=== PATIENT | female | born 1955 | race Caucasian/White ===

== ENCOUNTER 2021-01-13 15:46 | Emergency (ER) | payer OTHER, SELFPAY ==
--- NOTE | ~2021-01-13 | XR_ITS ---
XR elbow RT min 3V 01/13/2021 19:23 INDICATION: Right elbow pain after fall PROCEDURE: 4 views right elbow COMPARISON: No prior studies for comparison. FINDINGS: Fracture, dislocation or subluxation is not identified. The soft tissues appear within norm al limits. No foreign bodies are identified. IMPRESSION: 1: NO ACUTE BONE OR JOINT ABNORMALITY IDENTIFIED. Reviewed, dictated and finalized at location A. ORIC SITES SUPERVISOR
[2021-01-13 16:07] VITALS: BP 150/92; PULSE 129; RESP 18; TEMP 36.6; O2SAT 97
[2021-01-13 18:55] VITALS: BP 146/99; PULSE 100; RESP 18; TEMP 36.7; O2SAT 99
--- NOTE | 2021-01-13 19:45 | ED.GENADULT ---
HPI - General Adult General Chief complaint: Fall <Roula Arguelles PA-C - Last Filed: 01/13/21 19:55> Stated complaint: fall <Roula Arguelles PA-C - Last Filed: 01/13/21 19:55> Time Seen by Provider: 01/13/21 18:47 <Roula Arguelles PA-C - Last Filed: 01/13/21 19:55> Source: patient <KALIA Ledesma Last Filed: 01/13/21 19:55> Mode of arrival: ambulatory <Roula Arguelles PA-C - Last Filed: 01/13/21 19:55> Limitations: no limitations <Roula Arguelles PA-C - Last Filed: 01/13/21 19:55> History of Present Illness HPI narrative: Patient with history of emphysema hypertension presents with chief complaint of right elbow pain and abrasion that began on Wednesday after a fall. Patient states she is not sure why she lost her balance and fell. She is not sure if she had a syncopal event ,but she denies any headache, change in vision or hearing, additional episodes, bleeding from any orifices or any neurological deficits since the event. Patient denies any palpitations, chest pain or shortness of breath. Patient reports pain with full flexion of the right elbow. She also reports she has abrasions which she has been washing with antibacterial soap and applying bandages. She denies any other areas of pain. <Roula Arguelles PA-C - Last Filed: 01/13/21 19:55> Related Data Allergies/adverse reactions: Allergies Allergy/AdvReac Type Severity Reaction Status Date / Time tetracycline Allergy Unknown RASH Verified 11/01/18 11:34 <Roula Arguelles PA-C - Last Filed: 01/13/21 19:55> Review of Systems Review of Systems: Narrative: CONSTITUTIONAL: Denies fever, chills, or sweats. EYES: Denies visual changes, redness, or discharge. ENT: Denies rhinorrhea, congestion, sore throat, or otalgia. CARDIOVASCULAR: Denies chest pain, palpitations, or edema. RESPIRATORY: Denies cough or dyspnea. GASTROINTESTINAL: Denies abdominal pain, nausea, vomiting, or diarrhea. GENITOURINARY: Denies dysuria or hematuria. SKIN: Reports abrasion denies rash or itching. MUSCULOSKELETAL: Reports right elbow pain denies back pain, joint pain, or myalgia. NEUROLOGIC: Denies headache, numbness, dizziness, or weakness. PSYCHIATRIC: Denies anxiety or depression. <Roula Arguelles PA-C - Last Filed: 01/13/21 19:55> Exam Narrative: Exam Narrative: GENERAL: Well-appearing, well-nourished, and in no acute distress. HEAD: Normocephalic, atraumatic. EYES: PERRLA and EOMI. ENT: Nares clear, no rhinorrhea or epistaxis. Mucous membranes moist. Bilateral TMs pearly kimball nonbulging. No hemotympanum NECK: Supple. No adenopathy or masses. CHEST: Decreased airflow throughout. no respiratory distress. On 2 liters of oxygen via nasal cannula at baseline. HEART: Regular rate and rhythm. No murmur heard. Normal peripheral pulses. EXTREMITIES: Pain with full flexion. Abrasions noted to right elbow. No active bleeding or leaking. No signs of cellulitis or infection. SKIN: See elbow abrasions and extremities.warm, dry, no rash. NEURO: No focal deficits. Alert and oriented x3. PSYCH: Normal mood and affect. <Roula Arguelles PA-C - Last Filed: 01/13/21 19:55> Course Vital Signs Vital signs: Vital Signs Temperature 36.6 C 01/13/21 16:07 Pulse Rate 129 H 01/13/21 16:07 Respiratory Rate 18 01/13/21 16:07 Blood Pressure 150/92 H 01/13/21 16:07 Pulse Oximetry 97 01/13/21 16:07 Temperature 36.7 C 01/13/21 18:55 Pulse Rate 73 01/13/21 20:40 Respiratory Rate 16 01/13/21 20:40 Blood Pressure 144/87 H 01/13/21 20:40 Pulse Oximetry 96 01/13/21 20:40 <KALIA Ledesma Last Filed: 01/13/21 19:55> Vital Signs Temperature 36.6 C 01/13/21 16:07 Pulse Rate 129 H 01/13/21 16:07 Respiratory Rate 18 01/13/21 16:07 Blood Pressure 150/92 H 01/13/21 16:07 Pulse Oximetry 97 01/13/21 16:07 Temperature 36.7 C 01/13/21 18:55 Pulse Rate 73 01/13/21 20:40 Respiratory Rate 16
[2021-01-13 20:40] VITALS: BP 144/87; PULSE 73; RESP 16; O2SAT 96
== END 2021-01-13 20:45 | disposition home or self-care (01) ==
PROVIDERS: Emergency Provider Emergency Medicine; PCP Physician Assistant
DX: S53.401A Unspecified sprain of right elbow, initial encounter (principal); W18.39XA Other fall on same level, initial encounter
CPT/HCPCS: 73080; 99283

== ENCOUNTER 2021-10-08 12:56 | Outpatient (CLI) | payer OTHER, SELFPAY ==
--- NOTE | ~2021-10-08 | MM_ITS ---
EXAMINATION: MM screening vandana BI w amanda HISTORY: Screening mammogram TECHNIQUE: Craniocaudal and mediolateral oblique 3-D tomosynthesis images were obtained and synthetic 2-D images were generated. CAD analysis was submitted and interpreted. COMPARISON: December 22, 2018 limited right breast ultrasound 06/23/2018 diagnostic right mammogram and complete right breast ultrasound 06/13/2018, 07/15/2016 bilateral screening mammogram examinations BREAST PARENCHYMAL COMPOSITION: The breasts are heterogeneously dense, which may obscure small masses . FINDINGS: There is no evidence of suspicious mass, calcification, or architectural distortion to sugg est malignancy in either breast. There has been no suspicious interval change. IMPRESSION: 1. No mammographic evidence of malignancy. 2. Recommend routine screening mammography in one year. BI-RADS Category 1: Negative Reviewed, dictated and finalized at location A. H OPERATOR
--- NOTE | ~2021-10-08 | DEXA_ITS ---
Bone Density Report Name: Héctor Persaud Age: 66 Sex: Female Ethnicity: White Date of : 1955 Indication: postmenopausal; asthma or emphysema; hysterectomy; Referring Provider: REYNA, GIULIA Study: Bone densitometry was performed. Exam Date: October 08, 2021 Accession number: [id number] Bone Density: Region BMD T-score Z-score Classification AP Spine (L1, L2, L3) 0.655 -3.3 -1.4 Osteoporosis Femoral Neck (Left) 0.570 -2.5 -0.8 Osteoporosis Total Hip (Left) 0.598 -2.8 -1.4 Osteoporosis Total Hip Bilateral Avg 0.623 -2.6 -1.2 Osteoporosis Femoral Neck (Right) 0.612 -2.1 -0.4 Osteopenia Total Hip (Right) 0.647 -2.4 -1.0 Osteopenia World Health Organization criteria for BMD impression classify patients as: Normal (T-score at or above -1.0), Osteopenia (T-score between -1.0 and -2.5), or Osteoporosis (T-score at or below -2.5). 10-year Fracture Risk: FRAX not reported because: Some T-score for Spine Total or Hip Total or Femoral Neck at or below -2.5 Clinical Information Provided by Patient: Has used the following medications: Vitamin D, Calcium Has the following medical conditions: Asthma or Emphysema, Hysterectomy Patient maximum height was 62 Menopause Age: 46 No regular weight bearing exercise Drinks caffeinated beverages Onset of menses at age 12 Number of children 0 Impression: The patient has osteoporosis, based on the Total Spine T-score. Discussion: INCREASED RISK OF FRACTURE. BONE DENSITY IS UNDESIRABLY LOW AT ONE OR MORE SKELETAL SITES, CONSISTENT WITH POSTMENOPAUSAL OSTEOPOROSIS. This patient's lowest T-score meets the World Health Organization's (WHO) criteria for osteoporosis at one or more sites (T-score -2.5 or below). In untreated patients, the risk of osteoporotic fracture increases approximately two-fold for each 1.0 SD decrease in T-score. Low bone density is not the only risk factor for fracture; also consider factors such as patient's age, frailty or poor health, risk of falling, risk of injury, previous osteoporotic fracture, family history of osteoporosis, cigarette smoking, low body weight, etc. Not everyone with low bone mineral density has osteoporosis; osteomalacia and other metabolic bone disorders should also be considered. Patients who have osteoporosis should be evaluated for specific diseases and conditions (secondary causes) that may cause or contribute to bone loss. The [place] Association of Clinical Endocrinologists (AACE) and National Osteoporosis Foundation (NOF) recommend pharmacologic intervention for all postmenopausal women whose T-score is in this range. The patient should follow a healthful lifestyle (good nutrition with adequate calcium and vitamin D, and appropriate weight-bearing exercise). Follow-Up: Consider a repeat BMD and Vertebral Fracture Assessmen
== END 2021-10-08 12:57 | disposition home or self-care (01) ==
LOC: ANHIMG 12:59
PROVIDERS: PCP Physician Assistant; Visit Provider Physician Assistant
DX: Z12.31 Encounter for screening mammogram for malignant neoplasm of breast (principal); Z78.0 Asymptomatic menopausal state; M81.0 Age-related osteoporosis without current pathological fracture; M85.851 Other specified disorders of bone density and structure, right thigh
CPT/HCPCS: 77063; 77067; 77080

== ENCOUNTER 2021-10-21 11:43 | Emergency (ER) | payer OTHER, SELFPAY ==
--- NOTE | ~2021-10-21 | XR_ITS ---
EXAMINATION: XR hand RT min 3V DATE: 10/21/2021 13:17 INDICATION: Right hand injury with laceration to the fifth digit TECHNIQUE: Posteroanterior, oblique and lateral views of the right hand were obtained. COMPARISON: None. FINDINGS: One cortical width dorsal displacement of an oblique fracture at the proximal metadiaphyseal region o f the fifth metacarpal which does not appear to extend to involve the articular surface. Alignment is otherwise normal. No other fractures identified. Polyarticular osteoarthritis, moderate severity at the first carpal metacarpal and at multiple distal interphalangeal joints with additional mild osteoa rthritis at the wrist, distal radioulnar, triscaphe, multiple metacarpophalangeal and remaining inter phalangeal joints. Diffuse osteopenia. Soft tissue swelling with bandaging material at the fifth prox imal interphalangeal joint. No evident radiopaque foreign bodies. Small heterotopic ossicle along the dorsal/radial aspect of the base of the second proximal phalanx which could represent sequela of chr onic injury to the radial collateral ligament. IMPRESSION: 1. Minimally displaced extra articular fracture at the proximal metadiaphyseal region of the right fi fth metacarpal. 2. No evident radiopaque foreign body or osseous abnormality at the site of a reported laceration at the fifth proximal interphalangeal joint. 3. 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 Reviewed, dictated and finalized at location A. OR WIND ENERGY CONSULTANT IMPRESSION: 1. Minimally displaced extra articular fracture at the proximal metadiaphyseal region of the right fifth metacarpal. 2. No evident radiopaque foreign body or osseous abnormality at the site of a r eported laceration at the fifth proximal interphalangeal joint. 3. 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
[2021-10-21 11:45] VITALS: BP 147/96; PULSE 115; RESP 20; TEMP 36.2; O2SAT 99
--- NOTE | 2021-10-21 12:51 | ED.FALL ---
HPI - Fall General Chief Complaint: Fall Stated Complaint: R hand Injury Time Seen by Provider: 10/21/21 12:00 Source: patient Mode of arrival: ambulatory Limitations: no limitations History of Present Illness HPI Narrative: 66-year-old female Patient states that 3 days ago she fell in her bedroom and smacked her right hand on a table She has a lot of soreness and bruising but no obvious deformity She tells me that all of her friends are telling her that they do not think it is broken but she does not necessarily believe them so she came in to get it x-rayed today She is chronically on O2, does not think she tripped over catheter No other injuries, no back pain head injury lower extremity injury etc. Related Data Allergies Allergy/AdvReac Type Severity Reaction Status Date / Time tetracycline Allergy Unknown RASH Verified 11/01/18 11:34 Review of Systems Review of Systems: All systems reviewed & are unremarkable except as noted in HPI and below Constitutional: Constitutional: Reports no additional constitutional complaints, Denies headache(s) and Reports weakness Eyes: Eyes: Reports no additional eye complaints and Denies change in vision ENT: Denies headache(s) Cardiovascular: Cardiovascular: Denies chest pain and Denies dyspnea Respiratory: Respiratory: Denies dyspnea Gastrointestinal: Gastrointestinal: Denies abdominal pain Genitourinary: Genitourinary: Denies urinary frequency Musculoskeletal: Musculoskeletal: Denies back pain, Denies deformity, Reports arthralgias, Reports joint swelling and Denies numbness Integumentary/Breasts: Skin/Breast: Denies wounds Neurologic: Denies headache(s), Denies focal weakness and Denies numbness Exam Const: General: cooperative, no acute distress and alert Orientation/consciousness: patient oriented x3 (alert) HENMT: Head: normal to inspection, normocephalic, atraumatic, no contusions, no hematomas and no lacerations Ears: external ears normal General nose exam: no epistaxis Other: Wearing O2 Eyes: Conjunctivae: conjunctivae normal Pupils: Equal, round and reactive pupils present EOM: EOMs intact bilaterally Neck: Neck: normal visual inspection, supple and no JVD Resp: Effort & Inspection: normal respiratory effort and not labored Auscultation: other (BS =) Skin: General skin exam: no rashes or lesions noted Neuro: General: patient oriented x3 (alert) and moves all extremities Speech: normal speech Extrem: Other: Right hand, no obvious deformity and no localizing tenderness, there is considerable ecchymosis to the hyperthenar aspect, normal pulses normal cap refill Psych: Affect: normal affect Course Vital Signs Vital signs: Vital Signs Temperature 36.2 C L 10/21/21 11:45 Pulse Rate 115 H 10/21/21 11:45 Respiratory Rate 20 10/21/21 11:45 Blood Pressure 147/96 H 10/21/21 11:45 Pulse Oximetry 99 10/21/21 11:45 Temperature 36.2 C L 10/21/21 11:45 Pulse Rate 115 H 10/21/21 11:45 Respiratory Rate 20 10/21/21 11:45 Blood Pressure 147/96 H 10/21/21 11:45 Pulse Oximetry 99 10/21/21 11:45 MDM - Fall Imaging Data Radiologist's impression: ITS Impressions Hand X-Ray 10/21/21 13:17 IMPRESSION: 1. Minimally displaced extra articular fracture at the proximal metadiaphyseal region of the right fifth metacarpal. 2. No evident radiopaque foreign body or osseous abnormality at the site of a reported laceration at the fifth proximal interphalangeal joint. 3. 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 Discharge Plan Discharge Clinical Impression: Fracture of fifth metacarpal bone Patient Disposition: Home, Self-Care Condition: Stable Instructions: Hand Fracture (ED), Splint Care (ED), Abrasion (ED) Additional Instructions: Be sure to schedule a follow-up appointment with orthopedic surgery Most likely they will continue to treat this in a splint but there is a russel
== END 2021-10-21 15:40 | disposition home or self-care (01) ==
PROVIDERS: Emergency Provider Emergency Medicine; PCP Physician Assistant
DX: S62.396A Other fracture of fifth metacarpal bone, right hand, initial encounter for closed fracture (principal); Z99.81 Dependence on supplemental oxygen; M19.041 Primary osteoarthritis, right hand; M19.031 Primary osteoarthritis, right wrist; W01.190A Fall on same level from slipping, tripping and stumbling with subsequent striking against furniture, initial encounter
CPT/HCPCS: 29125; 73130; 99284

== ENCOUNTER → 2022-08-03 11:36 | Outpatient (CLI) | payer OTHER, SELFPAY ==
--- NOTE | ~2022-08-03 | XR_ITS ---
EXAMINATION: XR hip LT min 2V DATE: 08/03/2022 12:11 INDICATION: Lateral left hip pain post fall occurring 4 weeks post ORIF of a prior left hip fracture. TECHNIQUE: Anteroposterior and frog-leg lateral views of the left hip were obtained. COMPARISON: None. FINDINGS: Intratrochanteric fracture of the proximal left femur which appears mildly comminuted. Antegrade intr amedullary elisa, femoral neck dynamic compression distal interlocking screw fixation. Alignment appear s near-anatomic with mild distraction of a lesser trochanteric fragment which is not included within the fixation. Left hip joint space is normal. Soft tissues are unremarkable. IMPRESSION: 1. Near-anatomic alignment post internal fixation of a likely comminuted intratrochanteric fracture o f the proximal left femur. Unable to assess whether any component of the fracture is new or whether t here has been any change in alignment given the absence of prior imaging for comparison. Reviewed, dictated and finalized at location A. IMPRESSION: 1. Near-anatomic alignment post internal fixation of a likely comminuted intrat rochanteric fracture of the proximal left femur. Unable to assess whether any c omponent of the fracture is new or whether there has been any change in alignme nt given the absence of prior imaging for comparison.
== END ==
PROVIDERS: PCP Physician Assistant; Visit Provider Physician Assistant
DX: M25.552 Pain in left hip (principal)
CPT/HCPCS: 73502